=== PATIENT | female | born 1985 | race Caucasian/White ===

== ENCOUNTER 2021-04-07 05:23 | Day surgery (SDC) | payer BC, MEDICAID ==
[~2021-04-07] VITALS: Ht 175.3 cm; Wt 108.2 kg
[2021-04-07 06:01] VITALS: BP 111/64; PULSE 68; TEMP 97.7
[2021-04-07] MEDS ORDERED: PRENATAL TABLET PO (06:12)
--- NOTE | 2021-04-07 06:14 | NUR ---
TO RM AT 0540- CALL LIGHT IN REACH SISTER AT BEDSIDE.
[2021-04-07] MEDS ORDERED: NORCO 325 MG-51 TAB PO (07:23)
[2021-04-07 09:55] VITALS: BP 134/71; PULSE 80; TEMP 97.5
--- NOTE | 2021-04-07 09:55 | NUR ---
TO RM 8 PER CART FROM PACU. ALERT ORIENTED X3, TALKING WITH STAFF. DENIES PAIN OR DISCOMFORT. BANDAIDES CLEAN DRY INTACT. C/O PAIN 2/10 AND DENIES NEED FOR PAIN MEDICATIONS. DENIES NAUSEA.
[2021-04-07 10:10] VITALS: BP 118/66; PULSE 80
--- NOTE | 2021-04-07 10:10 | NUR ---
RECEIVED WATER AND CRACKERS.
[2021-04-07 10:25] VITALS: BP 124/72; PULSE 77
--- NOTE | 2021-04-07 10:25 | NUR ---
ATE 100% AND TOLERATED WELL.
--- NOTE | 2021-04-07 10:37 | NUR ---
RECEIVED DISCHARGE INSTRUCTIONS AND VERBALIZED UNDERSTANDING. DISCONTINUED IV AND INT- CATHETER INTACT.
--- NOTE | 2021-04-07 10:45 | NUR ---
DISCHARGED PER WC BY NURSING STAFF TO PRIVATE CAR IN CARE OF SISTER IVAN.
== END 2021-04-07 10:50 | disposition home or self-care (01) ==
LOC: SDCO 05:23
DX: K43.6 Other and unspecified ventral hernia with obstruction, without gangrene (principal); K42.0 Umbilical hernia with obstruction, without gangrene; I10 Essential (primary) hypertension; Z87.891 Personal history of nicotine dependence
CPT/HCPCS: C1781; J0690; J1100; J1170; J1885; J2405; J2704; J7120